=== PATIENT | female | born 1990 | race Caucasian/White ===

== ENCOUNTER 2017-02-03 16:39 | Inpatient (IN) | payer OTHER ==
[~2017-02-03] VITALS: Ht 157.5 cm; Wt 62.9 kg
[2017-02-03 16:56] VITALS: BP 145/79; PULSE 90; RESP 24; TEMP 98.5; O2SAT 97
[2017-02-03] MEDS ORDERED: BUPR150T5 PO (17:10)
[2017-02-03] MEDS ORDERED: QUET1TAB8 PO (17:10)
[2017-02-03] MEDS ORDERED: CITA20TA4 PO (17:10)
--- NOTE | 2017-02-03 17:22 | PD ---
HPI Chief Complaint: Psychiatric Symptoms Time Seen by Provider: 17:02 Travel History International Travel<30 days: No Contact w/Intl Traveler<30days: No Traveled to known affect area: No History of Present Illness HPI 26-year-old female presents to the emergency room under [place]eder act initiated and Police Department. Patient's grandmother called the Police Department because she has been psychotic and not slept in 3 days. She is also refusing to take her medication. Patient states she does not remember how long its been since she slept or took her medication. States she stopped taking medication because she is with 5 babies. She does not know how many weeks she is. According to police report, patient has been hallucinating. She denies suicidal or homicidal ideation. Denies illicit drug use. Denies alcohol use. Denies hallucinations or delusions. She is talking to persons are things that are not there. Per police report, patient was taking some psych medications and those medications were changed recently. PFSH Past Medical History Depression: Yes Diminished Hearing: No Psychiatric: Yes Schizophrenia: Yes Tetanus Vaccination: > 5 Years Influenza Vaccination: No ?: Past Surgical History Surgical History: No Previous Surgery Social History Alcohol Use: No Tobacco Use: No Substance Use: No Allergies-Medications (Allergen,Severity, Reaction): Coded Allergies: No Known Allergies (Unverified , 02/03/17) Reported Meds & Prescriptions Reported Meds & Active Scripts Active Reported Quetiapine (Quetiapine Fumarate) 100 Mg Tab 100 Mg PO DAILY Citalopram (Citalopram Hydrobromide) 20 Mg Tab 20 Mg PO DAILY Bupropion HCl ER 12 HR (Bupropion HCl) 150 Mg Tab 150 Mg PO DAILY Review of Systems Except as stated in HPI: all other systems reviewed are Neg Physical Exam Narrative GENERAL: Well-nourished, unkempt female in no acute distress. Afebrile. Ambulatory. SKIN: Focused skin assessment warm/dry. HEAD: Normocephalic. EYES: No scleral icterus. No injection or drainage. NECK: Supple, trachea midline. No JVD or lymphadenopathy. CARDIOVASCULAR: Regular rate and rhythm without murmurs, gallops, or rubs. RESPIRATORY: Breath sounds equal bilaterally. No accessory muscle use. PSYCHIATRIC: Patient is talking to people or things that are not in the room. Disorganized thought. Data Data Last Documented VS Vital Signs Date Time Temp Pulse Resp B/P (MAP) Pulse Ox O2 Delivery O2 Flow Rate FiO2 02/03/17 16:56 98.5 90 24 145/79 (101) 97 Orders Orders Complete Blood Count With Diff (02/03/17 17:04) Comprehensive Metabolic Panel (02/03/17 17:04) Urinalysis - C+S If Indicated (02/03/17 17:04) Ed Urine Pregnancytest Poc (02/03/17 17:04) Psych Screen (02/03/17 17:04) Drug Screen, Random Urine (02/03/17 17:04) Alcohol (Ethanol) (02/03/17 17:04) Sodium Chlor 0.9% 1000 Ml Inj (Ns 1000 M (02/03/17 18:30) Admit Order (Ed Use Only) (02/03/17 21:07) Admit To Inpatient Psych (02/03/17 ) Vital Signs (Adult) GALINA.Q12H.E (02/03/17 21:07) Activity Oob Ad Lilliana (02/03/17 21:07) Level Of Observation (Psych) (02/03/17 21:07) Basic Metabolic Panel (Bmp) (02/04/17 06:00) Thyroid Stimulating Hormone (02/04/17 06:00) Free Thyroxine (T4) (02/04/17 06:00) Lipid Profile (02/04/17 06:00) Rapid Plasmin Reagin Screen (02/04/17 06:00) Hemoglobin (Hgb) A1c (02/04/17 06:00) Labs Laboratory Tests Test 02/03/17 17:10 02/03/17 17:15 White Blood Count 12.6 TH/MM3 Red Blood Count 4.65 MIL/MM3 Hemoglobin 14.1 GM/DL Hematocrit 41.9 % Mean Corpuscular Volume 90.2 FL Mean Corpuscular Hemoglobin 30.4 PG Mean Corpuscular Hemoglobin Concent 33.7 % Red Cell Distribution Width 13.4 % Platelet Count 293 TH/MM3 Mean Platelet Volume 9.5 FL Neutrophils (%) (Auto) 55.3 % Lymphocytes (%) (Auto) 29.7 % Monocytes (%) (Auto) 13.4 % Eosinophils (%) (Auto) 0.9 % Basophils (%) (Auto) 0.7 % Neutrophils # (Auto) 6.9 TH/MM3 Lymphocytes # (Auto) 3.7 TH/MM3 Monocytes # (Auto) 1.7 TH/MM3 Eosinophils # (Auto) 0.1 TH/MM3 Basophils # (Auto) 0.1 TH/MM3 CBC Comment DIFF FINAL Differential Comment Blood Urea Nitrogen 18 MG/DL Creatinine 1.65 MG/DL Random Glucose 114 MG/DL Total Protein 7.9 GM/DL Albumin 4.3 GM/DL Calcium Level 10.0 MG/DL Alkaline Phosphatase 80 U/L Aspartate Amino Transf (AST/SGOT) 71 U/L Alanine Aminotransferase (ALT/SGPT) 49 U/L Total Bilirubin 0.5 MG/DL Sodium Level 141 MEQ/L Potassium Level 3.8 MEQ/L Chloride Level 105 MEQ/L Carbon Dioxide Level 16.3 MEQ/L Anion Gap 20 MEQ/L Estimat Glomerular Filtration Rate 38 ML/MIN Ethyl Alcohol Level LESS THAN 3 MG/DL Urine Color YELLOW Urine Turbidity HAZY Urine pH 5.5 Urine Specific [place] 1.036 Urine Protein 30 mg/dL Urine Glucose (UA) NEG mg/dL Urine Ketones 40 mg/dL Urine Occult Blood NEG Urine Nitrite NEG Urine Bilirubin NEG Urine Urobilinogen 2.0 MG/DL Urine Leukocyte Esterase SMALL Urine RBC 1 /hpf Urine WBC 5 /hpf Urine Squamous Epithelial Cells 8 /hpf Urine Amorphous Sediment RARE Urine Mucus FEW /lpf Microscopic Urinalysis Comment CULT NOT INDICATED Urine Opiates Screen NEG Urine Barbiturates Screen NEG Urine Amphetamines Screen NEG Urine Benzodiazepines Screen NEG Urine Cocaine Screen NEG Urine Cannabinoids Screen NEG MDM Medical Decision Making Medical Screen Exam Complete: Yes Emergency Medical Condition: Yes Medical Record Reviewed: Yes Differential Diagnosis Schizophrenia, schizoaffective disorder, autism, psychosis Narrative Course 26-year-old female presents to the emergency room under [place] act initiated by police department after her grandmother called concerned for her mental health. Patient has history of schizophrenia and possibly autism. States she has been off of her medications and has not slept for a very long time. Patient believes she is with 5 babies. She is clearly, acutely psychotic. She is speaking to things or persons that are not in the room. She is eating imaginary fried chicken and making out with an imaginary person. She has disorganized thoughts. ED urine test is negative. CBC is unremarkable. CMP shows evidence of acute kidney injury for which patient was given 1 L of fluids. UA is unremarkable. Drug screen is negative. Alcohol unremarkable. She is medically cleared for psychiatric evaluation. Condition: Stable Isabell Lezama Feb 03, 2017 17:22
[2017-02-03 17:44] LABS: AUTOMATED NEUTROPHIL # 6.9 TH/MM3 (1.8-7.7); BASOPHIL # 0.1 TH/MM3 (0-0.2); BASOPHIL % 0.7 % (0.0-2.0); EOSINOPHIL # 0.1 TH/MM3 (0-0.4); EOSINOPHIL % 0.9 % (0.0-4.0); HEMATOCRIT 41.9 % (35.0-46.0); HEMOGLOBIN 14.1 GM/DL (11.6-15.3); LYMPH % 29.7 % (9.0-44.0); LYMPHOCYTE # 3.7 TH/MM3 (1.0-4.8); MEAN CELL VOLUME 90.2 FL (80.0-100.0); MEAN CORPUSCULAR HEMOGLOBIN 30.4 PG (27.0-34.0); MEAN CORPUSCULAR HGB CONC 33.7 % (32.0-36.0); MEAN PLATELET VOLUME 9.5 FL (7.0-11.0); MONO % 13.4 % (0.0-8.0); MONOCYTE # 1.7 TH/MM3 (0-0.9); NEUT % 55.3 % (16.0-70.0); PLATELET COUNT 293 TH/MM3 (150-450); RED BLOOD COUNT 4.65 MIL/MM3 (4.00-5.30); RED CELL DISTRIBUTION WIDTH 13.4 % (11.6-17.2); WHITE BLOOD COUNT 12.6 TH/MM3 (4.0-11.0)
[2017-02-03 18:01] LABS: AMORPHOUS SEDIMENT, URINE RARE; BILIRUBIN, URINE NEG (NEG); BLOOD, URINE NEG (NEG); GLUCOSE,URINE NEG (NEG); KETONE, URINE 40 mg/dL (NEG); MUCUS URINE FEW /lpf (OCC); NITRITE,URINE NEG (NEG); PH, URINE 5.5 (5.0-8.5); SQUAMOUS EPITHELIAL CELL URINE 8 /hpf (0-5); URINE COLOR YELLOW (YELLW/STRAW); URINE LEUKOCYTE ESTERASE SMALL (NEG)
[2017-02-03 18:04] LABS: ALT (GPT) 49 U/L (10-53)
[2017-02-03 18:06] LABS: ALBUMIN 4.3 GM/DL (3.4-5.0); ALKALINE PHOSPHATASE 80 U/L (45-117); AST (GOT) 71 U/L (15-37); BICARBONATE 16.3 MEQ/L (21.0-32.0); BLOOD UREA NITROGEN 18 MG/DL (7-18); CHLORIDE 105 MEQ/L (98-107); CREATININE 1.65 MG/DL (0.50-1.00); GLOMERULAR FILTRATION RATE 38 ML/MIN (>89); GLUCOSE,RANDOM 114 MG/DL (74-106); SODIUM (NA) 141 MEQ/L (136-145); TOTAL BILIRUBIN ADULT 0.5 MG/DL (0.2-1.0); TOTAL PROTEIN 7.9 GM/DL (6.4-8.2)
[2017-02-03] MEDS ORDERED: SODIUM CHLOR 0.9% 1000 ML INJ 1,000 ML IV ONE (18:30)
[2017-02-03 21:30] VITALS: BP 161/87; PULSE 120; RESP 17; TEMP 99.1; O2SAT 96
[2017-02-03] MEDS ORDERED: ALUMINUM/MAGNESIUM/SIMETH 30 ML CUP PO PRN (21:45)
[2017-02-03] MEDS ORDERED: diphenhydrAMINE HCL 50 MG/ML VIAL - HS PRN IM (21:45)
[2017-02-03] MEDS ORDERED: MAGNESIUM HYDROXIDE SUSP 30 ML CUP PO PRN (21:45)
[2017-02-03] MEDS ORDERED: ACETAMINOPHEN 325 MG TAB PO PRN (21:45)
[2017-02-03] MEDS ORDERED: LORazepam 2 MG/ML VIAL IM PRN (21:45)
[2017-02-03] MEDS ORDERED: LORazepam 1 MG TAB PO PRN (21:45)
[2017-02-03] MEDS ORDERED: diphenhydrAMINE HCL 50 MG CAP - HS PRN PO (21:45)
[2017-02-04 05:57] VITALS: BP 145/64; PULSE 92; RESP 17; TEMP 98; O2SAT 96
[2017-02-04 09:49] LABS: BICARBONATE 22.2 MEQ/L (21.0-32.0); BLOOD UREA NITROGEN 14 MG/DL (7-18); CALCIUM 8.7 MG/DL (8.5-10.1); CHLORIDE 104 MEQ/L (98-107); CHOLESTEROL 119 MG/DL (120-200); CREATININE 0.96 MG/DL (0.50-1.00); GLOMERULAR FILTRATION RATE 70 ML/MIN (>89); GLUCOSE,RANDOM 75 MG/DL (74-106); SODIUM (NA) 139 MEQ/L (136-145); TRIGLYCERIDES 145 MG/DL (42-150)
[2017-02-04 09:52] LABS: FREE T4 1.13 NG/DL (0.76-1.46); LDL CHOLESTEROL 46 MG/DL (0-99)
--- NOTE | 2017-02-04 10:06 | PD.TTN ---
Patient Problems 1. Discharge planning 2. Medication compliance 3. Knowledge deficit 4. Lack of coping skills Progress Toward Goals Provider Present: Dr. Justin Tinoco Provider Input: Dr. Tinoco's had his treatment team meeting today to discuss patient's medication, treatment plan, and discharge. Patient was in need of an ETO due to psychotic episode. Nurse(s) Input: Patient's nurse Fouzia reported patient having uncontrollable body movements. unable to stay focus, eating ok. Psychiatric Counselors Present: [facility] Input: Patient seen today in her room. Patient presents childlike, internally stimulated, with visual and auditory hallucinations. Patient was in need of an ETO due to becoming upset and not able to be redirected. Patient did eat her breakfast. Patient is alert to person and place but has poor insight into her situation. Group Spec/RT/OT/CATES Present: DARRYN Avina Group Spec/RT/OT/CATES Input: Per Enrrique CATES patient is new and no report at this time. Christina [facility] Feb 04, 2017 10:06
--- NOTE | 2017-02-04 10:06 | PD.TTN ---
Patient Problems 1. Discharge planning 2. Medication compliance 3. Knowledge deficit 4. Lack of coping skills Progress Toward Goals Provider Present: Dr. Justin Tinoco Provider Input: Dr. Tinoco's had his treatment team meeting today to discuss patient's medication, treatment plan, and discharge. Patient was in need of an ETO due to psychotic episode. Nurse(s) Input: Patient's nurse Fouzia reported patient having uncontrollable body movements. unable to stay focus, eating ok. Psychiatric Counselors Present: [facility] Input: Patient seen today in her room. Patient presents childlike, internally stimulated, with visual and auditory hallucinations. Patient was in need of an ETO due to becoming upset and not able to be redirected. Patient did eat her breakfast. Patient is alert to person and place but has poor insight into her situation. Group Spec/RT/OT/CATES Present: DARRYN vAina Group Spec/RT/OT/CATES Input: Per Enrrique CATES patient is new and no report at this time. [facility]antes [facility] Feb 04, 2017 10:06
--- NOTE | 2017-02-04 10:06 | PD.TTN ---
Patient Problems 1. Discharge planning 2. Medication compliance 3. Knowledge deficit 4. Lack of coping skills Progress Toward Goals Provider Present: Dr. Justin Tinoco Provider Input: Dr. Tinoco's had his treatment team meeting today to discuss patient's medication, treatment plan, and discharge. Patient was in need of an ETO due to psychotic episode. Nurse(s) Input: Patient's nurse Fouzia reported patient having uncontrollable body movements. unable to stay focus, eating ok. Psychiatric Counselors Present: [facility] Input: Patient seen today in her room. Patient presents childlike, internally stimulated, with visual and auditory hallucinations. Patient was in need of an ETO due to becoming upset and not able to be redirected. Patient did eat her breakfast. Patient is alert to person and place but has poor insight into her situation. Group Spec/RT/OT/CATES Present: DARRYN Avina Group Spec/RT/OT/CATES Input: Per Enrrique CATES patient is new and no report at this time. Christina [facility] Feb 04, 2017 10:06
--- NOTE | 2017-02-04 15:21 | HHI.HP ---
Provisional Diagnosis Admission Date Feb 03, 2017 at 21:10 [place] I. Brief psychotic disorder Certification of Person's Competence To Provide Express and Informed Consent I have personally examined Christina Guzman , a person being served at [facility] on, Feb 04, 2017 15:02. Express and informed consent means consent voluntarily given in writing, by a competent person, after sufficient explanation and disclosure of the subject matter involved to enable the person to make a knowing and willful decision without any element of force, fraud, deceit, duress, or other form of constraint or coercion. This person is 18 years of age or older, is not now known to be incompetent to consent to treatment with a guardian advocate, and does not have a health care surrogate or proxy currently making medical treatment decisions. I have found this person to be one of the following: [] Competent to provide express and informed consent, as defined above, for voluntary admission to this facility and is competent to provide express and informed consent for treatment. He/she has the consistent capacity to make well reasoned, willful, and knowing decisions concerning his or her medical or mental health treatment. The person fully and consistently understands the purpose of the admission for examination/placement and is fully capable of personally exercising all rights assured [place] [x] Incompetent to provide express and informed consent to voluntary admission, and this is incompetent to provide express and informed consent to treatment. The person must be transferred to involuntary status and a petition for a guardian advocate filed with the Circuit Court. [] Refusing to provide express and informed consent to voluntary admission but is competent to provide express and informed consent for treatment. The person must be discharged or transferred to involuntary status. Form shall be completed within 24 hours of a person's arrival at the receiving facility and filed in the clinical record of each person: 1. Admitted on a voluntary basis 2. Permitted to provide express and informed consent to his/her own treatment 3. Allowed to transfer from involuntary to voluntary status 4. Prior to permitting a person to consent to his or her own treatment after having been previously found incompetent to consent to treatment. History of Present Illness Capacity: Lacks Capacity Psych Chief Complaint: psychosis HPI Patient is a 26-year-old woman, single, domiciled with grandparents, unemployed on SSI, unclear past psychiatric history who was brought to the ED by police after grandmother called for help stated the patient was psychotic and not sleeping for 3 days and refusing her medications which she was subsequently admitted to the inpatient psychiatry for further evaluation and management. As per ED note patient had reported having stopped her medications be believes she was with 5 babies. Patient ER was noted to be talking to self, noted to be eating medullary chicken and making out with him an imaginary person. Labs done ED showed hCG negative, CBC within normal limits and CMP with ABEL status post IV fluid replacement. Urine toxicology was negative. Prior to interview patient was seen by therapist and nurse which patient was responding to internal stimuli became slightly agitated as she was noted to be talking to someone not in the room which she required Ativan 2 mg IM. Patient was later seen by race and sports book writer and nurse which she stated she was brought to the hospital by [place] activated by her grandmother, Soni Menon [phone], and believes that her grandmother was concerned because she wouldn 't go out on her room. Patient states that she believes that her ex-boyfriend was controlling her a lot and telling her what to do but denies any perceptual disturbances. Patient is to her mood has been good, has not been sleeping for the past couple of days alert and oriented only to person and place states that her mood at this time was "relieving", denies any auditory or visual hallucinations at time of interview but was noted to be internally preoccupied, thought blocking and responding to internal stimuli throughout interview. Pattern Designer attempted to call patient's grandmother, Soni Mneon but there was no answer. Review of Systems Except as stated in HPI: all other systems reviewed are Neg Past Psych History Psychological trauma history Patient unable to provide history at this time due to psychosis Violence risk - others (6 mos) Low Violence risk - self (6 mos) Low Substance Abuse History Drugs/Alcohol past 12 months Patient denied Past Family Social History Coded Allergies: No Known Allergies (Unverified , 02/03/17) Reported Medications Quetiapine (Quetiapine) 100 Mg Tab, 100 MG PO DAILY, #30 TAB 0 Refills 02/03/17 Citalopram (Citalopram) 20 Mg Tab, 20 MG PO DAILY for Control Depression, #30 TAB 0 Refills 02/03/17 Bupropion HCl ER 12 HR (Bupropion HCl ER 12 HR) 150 Mg Tab, 150 MG PO DAILY, # 60 TAB 02/03/17 Current Medications Medications (Trade) Dose Ordered Sig/Nate Route Start Time Stop Time Status Last Admin (Ativan) 1 mg Q6H PRN PO 02/03/17 21:45 02/03/17 21:55 (Ativan Inj) 1 mg Q6H PRN IM 02/03/17 21:45 02/04/17 09:28 (Benadryl) 50 mg HS PRN PO 02/03/17 21:45 (Benadryl Inj) 50 mg HS PRN IM 02/03/17 21:45 (Tylenol) 650 mg Q4H PRN PO 02/03/17 21:45 (Milk Of Magnesia Liq) 30 ml DAILY PRN PO 02/03/17 21:45 (Mag-Al Plus Susp Liq) 30 ml Q6H PRN PO 02/03/17 21:45 (risperDAL) 1 mg Q12HR PO 02/04/17 14:00 (Wellbutrin Sr) 150 mg DAILY PO 02/05/17 09:00 (CeleXA) 20 mg DAILY PO 02/05/17 09:00 Family Psych History Patient denied Social History Single, domiciled grandparents, unemployed, on SSI, eyes education second grade. Patient's Strengths (min. 2) Verbal and communicative Physical Exam Physical examination was limited due to patient's current psychosis but was not noted to be in acute distress, noted with some resolving ecchymoses of the drastic of left arm, no gross motor abnormalities, no tremors or EPS, no noted psychomotor retardation or agitation Vital Signs Vital Signs Date Time Temp Pulse Resp B/P (MAP) Pulse Ox O2 Delivery O2 Flow Rate FiO2 02/04/17 05:57 98.0 92 17 145/64 (91) 96 Lab Results Labs reviewed. Test 02/03/17 17:10 02/03/17 17:15 02/04/17 07:58 White Blood Count 12.6 TH/MM3 Red Blood Count 4.65 MIL/MM3 Hemoglobin 14.1 GM/DL Hematocrit 41.9 % Mean Corpuscular Volume 90.2 FL Mean Corpuscular Hemoglobin 30.4 PG Mean Corpuscular Hemoglobin Concent 33.7 % Red Cell Distribution Width 13.4 % Platelet Count 293 TH/MM3 Mean Platelet Volume 9.5 FL Neutrophils (%) (Auto) 55.3 % Lymphocytes (%) (Auto) 29.7 % Monocytes (%) (Auto) 13.4 % Eosinophils (%) (Auto) 0.9 % Basophils (%) (Auto) 0.7 % Neutrophils # (Auto) 6.9 TH/MM3 Lymphocytes # (Auto) 3.7 TH/MM3 Monocytes # (Auto) 1.7 TH/MM3 Eosinophils # (Auto) 0.1 TH/MM3 Basophils # (Auto) 0.1 TH/MM3 CBC Comment DIFF FINAL Differential Comment Blood Urea Nitrogen 18 MG/DL 14 MG/DL Creatinine 1.65 MG/DL 0.96 MG/DL Random Glucose 114 MG/DL 75 MG/DL Total Protein 7.9 GM/DL Albumin 4.3 GM/DL Calcium Level 10.0 MG/DL 8.7 MG/DL Alkaline Phosphatase 80 U/L Aspartate Amino Transf (AST/SGOT) 71 U/L Alanine Aminotransferase (ALT/SGPT) 49 U/L Total Bilirubin 0.5 MG/DL Sodium Level 141 MEQ/L 139 MEQ/L Potassium Level 3.8 MEQ/L 3.0 MEQ/L Chloride Level 105 MEQ/L 104 MEQ/L Carbon Dioxide Level 16.3 MEQ/L 22.2 MEQ/L Anion Gap 20 MEQ/L 13 MEQ/L Estimat Glomerular Filtration Rate 38 ML/MIN 70 ML/MIN Ethyl Alcohol Level LESS THAN 3 MG/DL Urine Color YELLOW Urine Turbidity HAZY Urine pH 5.5 Urine Specific [place] 1.036 Urine Protein 30 mg/dL Urine Glucose (UA) NEG mg/dL Urine Ketones 40 mg/dL Urine Occult Blood NEG Urine Nitrite NEG Urine Bilirubin NEG Urine Urobilinogen 2.0 MG/DL Urine Leukocyte Esterase SMALL Urine RBC 1 /hpf Urine WBC 5 /hpf Urine Squamous Epithelial Cells 8 /hpf Urine Amorphous Sediment RARE Urine Mucus FEW /lpf Microscopic Urinalysis Comment CULT NOT INDICATED Urine Opiates Screen NEG Urine Barbiturates Screen NEG Urine Amphetamines Screen NEG Urine Benzodiazepines Screen NEG Urine Cocaine Screen NEG Urine Cannabinoids Screen NEG Triglycerides Level 145 MG/DL Cholesterol Level 119 MG/DL LDL Cholesterol 46 MG/DL HDL Cholesterol 44.0 MG/DL Cholesterol/HDL Ratio 2.70 RATIO Free Thyroxine 1.13 NG/DL Thyroid Stimulating Hormone 3rd Gen 1.490 uIU/ML Rapid Plasma Reagin NON-REACTIVE Mental Status Examination Appearance: Appropriate Consciousness: Somnolent (slightly) Orientation: Person, Place Motor Activity: Normal gait Speech: Other (slightly slurred, likely due to recent Ativan given) Language: Adequate Fund of Knowledge: Inadequate Attention and Concentration: Inadequate Memory: Impaired Mood: Other Affect: Labile Thought Process & Associations: Disorganized Thought Content: Thought blocking, Other (responding to internal stimuli) Hallucination Type: Auditory, Visual Delusion Type: Bizarre Suicidal Ideation: No Suicidal Plan: No Suicidal Intention: No Homicidal Ideation: No Homicidal Plan: No Homicidal Intention: No Insight: Poor Judgment: Poor Assessment & Plan Problem List: (1) Brief psychotic disorder ICD Codes: F23 - Brief psychotic disorder Assessment & Plan Estimated LOS: 5-7 days. Patient is a 26-year-old woman with unclear past psychiatric history who was brought in by EMS activated by grandmother due to patient noted to be psychotic, refusing medications and not sleeping for 3 days, who was admitted to the inpatient psychiatry unit for further evaluation and management. Patient at this time continues to be noted to be very psychotic , responding to internal stimuli and noted to be talking to self. Start risperidone 1 mg by mouth twice a day, continue Celexa 20 mg by mouth daily continue Wellbutrin 150 mg by mouth daily. Monitor for medication response adverse drug reactions. Collateral contact, Soni Menon (grandmother) , was attempted to be contacted but there was no answer. Collateral information pending. Petition for involuntary hospitalization started, request second opinion. Petition for health care surrogate a guardian advocate also completed. Discharge planning in progress Discharge Planning Patient to be discharged back to grandparents home when psychiatrically stable. Andrei Tinoco MD Feb 04, 2017 15:21
[2017-02-04] MEDS: risperiDONE 1 MG TAB PO SCH ×2 (15:30→21:59)
[2017-02-04 16:25] LABS: HEMOGLOBIN A1C 5.4 % (4.3-6.0)
[2017-02-04 18:03] VITALS: BP 116/66; PULSE 85; RESP 18; TEMP 97.9; O2SAT 99
[2017-02-05 06:06] VITALS: BP 141/71; PULSE 102; RESP 18; TEMP 98.3; O2SAT 99
[2017-02-05] MEDS: CITALOPRAM HYDROBROMIDE 20 MG TAB PO SCH (08:44)
[2017-02-05] MEDS: buPROPion HCL 150 MG SUSTAINED RELEASE TAB PO SCH (08:44)
[2017-02-05] MEDS: risperiDONE 1 MG TAB PO SCH ×2 (08:44→20:35)
--- NOTE | 2017-02-05 13:17 | PD.CONS ---
[facility] Request[facility] By Doctor Andrei Tinoco Reason for Consult Medical Management. Primary Care Physician Unknown Diagnoses: History of Present Illness This is a pleasant 26 y/o Female who came to ER under [place] act initiated by Police Department, when her Grandmother called the Police Department because she has been psychotic and not slept in 3 days. She is also refusing to take her medication. Patient states she does not remember how long its been since she slept or took her medication. States she stopped taking medication because she is with 5 babies. She does not know how many weeks she is. According to police report, patient has been hallucinating. She denies suicidal or homicidal ideation. Denies illicit drug use. Denies alcohol use. Denies hallucinations or delusions. She is talking to persons are things that are not there. Per police report, patient was taking some psych medications and those medications were changed recently. in Emergency room she had Acute kidney Injury status post IV fluids and Improved now with Hypokalemia replaced, seen in Psychiatric unit. in the presence of nurse at all times when I was in the room. Review of Systems Constitutional: DENIES: Fever, Chills, Change in appetite Endocrine: DENIES: Heat/cold intolerance Eyes: DENIES: Blurred vision, Eye pain Except as stated in HPI: all other systems reviewed are Neg Past Family Social History Allergies: Coded Allergies: No Known Allergies (Unverified , 02/03/17) Past Medical History Depression Schizophrenia Past Surgical History No past surgical History Reported Medications Reported Meds & Active Scripts Active Reported Quetiapine (Quetiapine Fumarate) 100 Mg Tab 100 Mg PO DAILY Citalopram (Citalopram Hydrobromide) 20 Mg Tab 20 Mg PO DAILY Bupropion HCl ER 12 HR (Bupropion HCl) 150 Mg Tab 150 Mg PO DAILY Active Ordered Medications Current Medications Medications (Trade) Dose Ordered Sig/Nate Route Start Time Stop Time Status Last Admin (Ativan) 1 mg Q6H PRN PO 02/03/17 21:45 02/03/17 21:55 (Ativan Inj) 1 mg Q6H PRN IM 02/03/17 21:45 02/04/17 09:28 (Benadryl) 50 mg HS PRN PO 02/03/17 21:45 (Benadryl Inj) 50 mg HS PRN IM 02/03/17 21:45 (Tylenol) 650 mg Q4H PRN PO 02/03/17 21:45 (Milk Of Magnesia Liq) 30 ml DAILY PRN PO 02/03/17 21:45 (Mag-Al Plus Susp Liq) 30 ml Q6H PRN PO 02/03/17 21:45 (risperDAL) 1 mg Q12HR PO 02/04/17 14:00 02/05/17 08:44 (Wellbutrin Sr) 150 mg DAILY PO 02/05/17 09:00 02/05/17 08:44 (CeleXA) 20 mg DAILY PO 02/05/17 09:00 02/05/17 08:44 Family History asked and denied. Social History Denies any toxic habits. Physical Exam Vital Signs Vital Signs Date Time Temp Pulse Resp B/P (MAP) Pulse Ox O2 Delivery O2 Flow Rate FiO2 02/05/17 06:06 98.3 102 18 141/71 (94) 99 02/04/17 18:03 97.9 85 18 116/66 (83) 99 Physical Exam GENERAL: Well-nourished, unkempt female in no acute distress. Afebrile. Ambulatory. SKIN: Focused skin assessment warm/dry. HEAD: Normocephalic. EYES: No scleral icterus. No injection or drainage. NECK: Supple, trachea midline. No JVD or lymphadenopathy. CARDIOVASCULAR: Regular rate and rhythm without murmurs, gallops, or rubs. RESPIRATORY: Breath sounds equal bilaterally. No accessory muscle use. PSYCHIATRIC: Patient is talking to people or things that are not in the room. Disorganized thought. Result Diagram: 02/03/17 1710 02/04/17 0758 Imaging No imaging studies. Assessment and Plan Assessment and Plan 1. Acute Kidney Injury Improved 2. electrolyte derangement replacing. and following if by tomorrow stable okay to sign off the case. 3. Brief psychotic Episode/Schizophrenia/Depression. continue present care and follow in am tomorrow. Code Status Full Code Discussed Condition With Patient and nurse. Eddy Zhou MD Feb 05, 2017 13:17
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
[2017-02-05] MEDS ORDERED: POTASSIUM CHLORIDE 20 MEQ CONTROLLED RELEASE TAB PO ONE ×2 (14:00→17:00)
[2017-02-05 18:30] VITALS: BP 126/67; PULSE 92; RESP 17; TEMP 98.3; O2SAT 98
[2017-02-06 06:45] VITALS: BP 129/66; PULSE 105; RESP 18; TEMP 97.6; O2SAT 98
[2017-02-06] MEDS: CITALOPRAM HYDROBROMIDE 20 MG TAB PO SCH (09:00)
[2017-02-06] MEDS: buPROPion HCL 150 MG SUSTAINED RELEASE TAB PO SCH (09:00)
[2017-02-06] MEDS: risperiDONE 1 MG TAB PO SCH (09:00)
[2017-02-06 12:00] LABS: MAGNESIUM 2.2 MG/DL (1.5-2.5)
[2017-02-06] MEDS ORDERED: POTASSIUM CHLORIDE 20 MEQ CONTROLLED RELEASE TAB PO ONE (13:30)
--- NOTE | 2017-02-06 14:14 | PD.TTN ---
Patient Problems 1. Discharge planning 2. Medication compliance 3. Knowledge deficit 4. Lack of coping skills Progress Toward Goals Provider Present: Dr. Justin Tinoco Provider Input: Dr. Tinoco's had his treatment team meeting today to discuss patient's medication, treatment plan, and discharge. Patient was in need of an ETO due to psychotic episode. 02/06/17 Dr. Tinoco reports patient is meeting criteria to stay. Patient continues to present with delusional content Nurse(s) Input: Patient's nurse Fouzia reported patient having uncontrollable body movements. unable to stay focus, eating ok. 02/06/17 Patient's nurse Arpita reports patient continues to present with delusional content of being . Patient slept late today, calm. pleasant, poor insight Psychiatric Counselors Present: IFRAH Deshpande Psych Therapist Input: Patient seen today in her room. Patient presents childlike, internally stimulated, with visual and auditory hallucinations. Patient was in need of an ETO due to becoming upset and not able to be redirected. Patient did eat her breakfast. Patient is alert to person and place but has poor insight into her situation. 02/06/17 Patient presents calm, plesant, cooperative, affect blunted. Patient is alert to person, place, time but has poor insight in her situation. Patient is medication compliant and reporting feeling better. Patient denies internal stimulation, however patient has been viewed speaking to herself. Patient does present with delusional content of being with 5 babies. Patient reports sleeping better and eating well. Patient once discharged will return home with her grandmother. Group Spec/RT/OT/CATES Present: DARRYN Coleman, DARRYN Avina Group Spec/RT/OT/CATES Input: Per Enrrique CATES patient is new and no report at this time. 02/06/17 Per Atif CATES patient does not attend, seclusive to room. Christina Cervantes Feb 06, 2017 14:14
[2017-02-06] MEDS: PALIPERIDONE ER 6 MG TAB PO SCH (15:00)
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
[2017-02-06 17:38] VITALS: BP 137/81; PULSE 95; RESP 18; TEMP 98.2; O2SAT 100
[2017-02-07 06:09] VITALS: BP 139/77; PULSE 92; RESP 16; TEMP 98.2; O2SAT 98
[2017-02-07] MEDS: CITALOPRAM HYDROBROMIDE 20 MG TAB PO SCH (10:38)
[2017-02-07] MEDS: buPROPion HCL 150 MG SUSTAINED RELEASE TAB PO SCH (10:39)
[2017-02-07] MEDS: PALIPERIDONE ER 6 MG TAB PO SCH (10:39)
[2017-02-07] MEDS ORDERED: INVE6TAB3 PO (10:50)
[2017-02-07] MEDS ORDERED: CELE20TA PO (10:50)
[2017-02-07] MEDS ORDERED: BUPR150CR PO (10:50)
--- NOTE | 2017-02-07 14:59 | HHI.DS ---
Psychiatry Discharge Summary Inpatient Psychiatric care?: Yes Advance Directive: No Reason Not Provided: NONE Mental Health AdvanceDirective: No Health Care Proxy: No Admission Admission Date Feb 03, 2017 at 21:10 Admission Diagnosis: (1) Brief psychotic disorder ICD Code: F23 - Brief psychotic disorder Brief History Patient is a 26-year-old woman, single, domiciled with grandparents, unemployed on SSI, unclear past psychiatric history who was brought to the ED by police after grandmother called for help stated the patient was psychotic and not sleeping for 3 days and refusing her medications which she was subsequently admitted to the inpatient psychiatry for further evaluation and management. As per ED note patient had reported having stopped her medications be believes she was with 5 babies. Patient ER was noted to be talking to self, noted to be eating medullary chicken and making out with him an imaginary person. Labs done ED showed hCG negative, CBC within normal limits and CMP with ABEL status post IV fluid replacement. Urine toxicology was negative. Prior to interview patient was seen by therapist and nurse which patient was responding to internal stimuli became slightly agitated as she was noted to be talking to someone not in the room which she required Ativan 2 mg IM. Patient was later seen by filing writer and nurse which she stated she was brought to the hospital by [facility] activated by her grandmother, Soni Menon [phone], and believes that her grandmother was concerned because she wouldn 't go out on her room. Patient states that she believes that her ex-boyfriend was controlling her a lot and telling her what to do but denies any perceptual disturbances. Patient is to her mood has been good, has not been sleeping for the past couple of days alert and oriented only to person and place states that her mood at this time was "relieving", denies any auditory or visual hallucinations at time of interview but was noted to be internally preoccupied, thought blocking and responding to internal stimuli throughout interview. The patient was seen today for psychiatric evaluation of second opinion, the patient was found sleeping, but easily arousable, patient says that she is here because she has been feeling that she has to let go "a lot of things that are inside me". Patient says that she has been "I think I am 3 babies and I wanted to have them checked". Patient denies depressive symptoms, she denies anxiety, she denies suicidal and homicidal ideation, she denies visual and auditory hallucination at the moment. Tobacco Use In Past 30 Days: No Tobacco Past 30 Days Alcohol Use: Monthly or Less Hospital Course Patient is a 26-year-old woman, single, domiciled with grandparents, unemployed on SSI, unclear past psychiatric history who was brought to the ED by police after grandmother called for help stated the patient was psychotic and not sleeping for 3 days and refusing her medications which she was subsequently admitted to the inpatient psychiatry for further evaluation and management. Patient was admitted to the inpatient psychiatry unit where she was started onrisperidone 1mg PO BID, continued on citalopram 20mg PO daily and bupropion 150mg PO daily which she appeared to respond to and was having less internal preoccupation with more organized thought process but continued with bizarre delusions of being and being controlled by her ex-boyfriend. Patient had reported some galactorrhea which she was switched to paliperidone 6mg PO daily. Patient was presented to mental health court for petition for involuntary admission but was discharged by the customs and border protection inspector. During court patient had agreed to continue treatment and outpatient follow up. Upon discharge patient was encouraged to continue treatment and attend outpatient follow up appointments for continuity of care which she agreed to. Patient denies SI, HI , AVH or delusions. Supportive psychotherapy provided. Patient advised to return to ED or call 911 in case of emergency. Patient agrees with plan. Results Blood Pressure 139 / 77 Vital Signs Date Time Temp Pulse Resp B/P (MAP) Pulse Ox O2 Delivery O2 Flow Rate FiO2 02/07/17 06:09 98.2 92 16 139/77 (97) 98 Laboratory Tests Test 02/06/17 10:24 Laboratory Results Test 02/04/17 07:58 Cholesterol Level 119 MG/DL (120-200) HDL Cholesterol 44.0 MG/DL (40.0-60.0) Hemoglobin A1c 5.4 % (4.3-6.0) LDL Cholesterol 46 MG/DL (0-99) Triglycerides Level 145 MG/DL (42-150) Summary of Procedures None Pending results at discharge: No Medications # of Antipsychotic meds at D/C: 1 Approp Antipsych med options 1 - Minimum of three failed multiple trials of monotherapy. 2 - Documented plan to taper to monotherapy due to previous use of multiple meds OR cross-taper in progress at D/C. 3 - Documentation of augmentation of Clozapine. 4 - Justification other than those listed in allowable values 1-3, document here : Discharge Discharge Date: Feb 07, 2017 Discharge Diagnosis: (1) Brief psychotic disorder ICD Code: F23 - Brief psychotic disorder Pt Condition on Discharge: Stable Discharge Disposition: Discharge Home Discharge Instructions Diet Instructions: As Tolerated, No Restrictions Activities you can perform: Regular-No Restrictions Scheduled Appointment: JOSE G Appointment Date: Feb 12, 2017 Appointment Time: 11:15am Discharge Time > 30 minutes Mental Status Examination Appearance: Appropriate Consciousness: Alert Orientation: Person, Place Motor Activity: Normal gait Speech: Slow Language: Adequate Fund of Knowledge: Inadequate Attention and Concentration: Inadequate Memory: Impaired Mood: Other ("fine") Affect: Other (restricted) Thought Process & Associations: Disorganized (less so today) Thought Content: Bizarre thinking (believes she is with 5 babies) Hallucination Type: Auditory (denies at this time) Delusion Type: Bizarre (believes she is with 5 babies) Suicidal Ideation: No Suicidal Plan: No Suicidal Intention: No Homicidal Ideation: No Homicidal Plan: No Homicidal Intention: No Insight: Poor Judgment: Poor Discharge/Advance Care Plan Health Problems: (1) Brief psychotic disorder Goals to promote your health * To prevent worsening of your condition and complications * To maintain your health at the optimal level Directions to meet your goals Take your medications as prescribed Follow your dietary instruction Follow activity as directed Keep your appointments as scheduled Take your immunizations and boosters as scheduled If your symptoms worsen call your PCP, if no PCP go to Urgent Care Center or Emergency Room For 29/10 questions related to your inpatient stay or results of tests pending at discharge, please contact Dr. Andrei Tinoco at Smoking is Dangerous to Your Health. Avoid second hand smoking Andrei Tinoco MD Feb 07, 2017 14:59
== END 2017-02-07 14:35 | disposition home or self-care (01) | DRG 885 ==
LOC: NEPD 16:39 → NEDA 21:10 → H260 21:26
PROVIDERS: ADMIT Student in an Organized Health Care Education/Training Program; ATTEND Student in an Organized Health Care Education/Training Program
DX: F23 Brief psychotic disorder (principal); N17.9 Acute kidney failure, unspecified; E87.6 Hypokalemia; F32.9 Major depressive disorder, single episode, unspecified; N64.3 Galactorrhea not associated with childbirth
CPT/HCPCS: 80048; 80053; 80061; 80307; 81001; 83036; 83735; 84132; 84439; 84443; 84703; 85025; 86592; 96360; J2060; J7030